=== PATIENT | female | born 1960 | race Caucasian/White ===

== ENCOUNTER 2017-01-06 10:29 | Emergency (ER) | payer OTHER ==
--- NOTE | ~2017-01-06 | CT16 ---
[facility] A Service [facility] RADIOLOGY TEXT RESULTS PATIENT: MADDI LUTZ LOCATION: SED : 62 UNIT #: [id number] AGE: [address]: Canelo Baron MD SEX: F ORDER DR: [id number] [address] [address] [id number] E MR#: [id number] Acc #: [id number] NAME: MADDI LUTZ. : 1960 SEX: F STUDY DATE/TIME: 01/06/2017 11:28 UNIT: SED ROOM: STUDY DESCRIPTION: CT Angio Chest for PE Attending Physician: Canelo Baron M.D. Ordering Physician: Canelo Baron M.D. Primary Care Physician: No Primary Care Physician MEDICAL IMAGING REPORT This report is preliminary unless electronic signature is present. EXAM CTA chest with contrast, PE protocol, 01/06/2017 HISTORY 56-year-old female with shortness of air and cough for 3 days. Chest pain. COMPARISON None TECHNIQUE Helical scan performed through the chest following the timed bolus administration of IV contrast, per PE protocol. Coronal 3-D MIP reconstructions. Sagittal reformatted images. This CT exam was performed with one or more of the following radiation dose reduction techniques: automatic exposure control, adjustment of mA and/or kV according to patient size, and iterative reconstruction. FINDINGS There is adequate opacification of the pulmonary arteries with no filling defects noted. Thoracic aorta normal in course and caliber without dissection. Heart size is normal. No pericardial effusion. Moderate hiatal hernia. No pleural effusions. No pneumothorax. No parenchymal infiltrates. Incidental scanning through the upper abdomen is unremarkable. No acute bony abnormality. IMPRESSION 1. Negative for pulmonary emboli. 2. Negative for thoracic aortic aneurysm/dissection. 3. No acute pulmonary process. [facility] A Service [facility] RADIOLOGY TEXT RESULTS PATIENT: MADDI LUTZ LOCATION: SED : 62 UNIT #: [id number] AGE: [address]: Canelo Baron MD SEX: F ORDER DR: 4. Moderate hiatal hernia. Dictated by... Luis Gomes M.D. THIS IS AN ELECTRONICALLY VERIFIED REPORT Luis Gomes M.D. at 01/06/2017 2:47 PM VIDAL/ria TD: 01/06/2017 14:43 JOB #: [id number] MEDICAL IMAGING REPORT Page 1 of 1
--- NOTE | ~2017-01-06 | EKG ---
PATIENT: MADDI LUTZ UNIT #: [id number] Ventricular Rate: 72 BPM Atrial Rate: 72 BPM P-R Interval: 102 ms QRS Duration: 124 ms Q-T Interval: 416 ms QTC Calculation(Bezet): 455 ms P Ponce: 5 degrees Calculated R Ponce: -41 degrees Calculated T Ponce: -14 degrees Diagnosis Line: Sinus rhythm with sinus arrhythmia with short AR Diagnosis Line: Left axis deviation Diagnosis Line: Right bundle branch block with repolarization Diagnosis Line: abnormality Diagnosis Line: Abnormal ECG Diagnosis Line: No previous ECGs available Diagnosis Line: Confirmed by FARRAH MAHMOOD MD ([id number]) on 01/09/2017 Diagnosis Line: 9:36:47 AM INTERPRETING MD: ELA WHITE
--- NOTE | ~2017-01-06 | CR72 ---
[facility]. [facility] A Service of [facility] RADIOLOGY TEXT RESULTS PATIENT: MADDI LUTZ LOCATION: SED : 62 UNIT #: [id number] AGE: [address]: Canelo Baron MD SEX: F ORDER DR: [id number] [address] [address] [id number] E MR#: [id number] Acc #: [id number] NAME: MADDI LUTZ : 1960 SEX: F STUDY DATE/TIME: 01/06/2017 10:33 UNIT: SED ROOM: STUDY DESCRIPTION: CR Chest Single View Portable Attending Physician: Canelo Baron M.D. Ordering Physician: Canelo Baron M.D. Primary Care Physician: Primary Care Physician No MEDICAL IMAGING REPORT This report is preliminary unless electronic signature is present. EXAM Portable chest 01/06/2017 HISTORY Chest pain for 4 days. Comparison none. FINDINGS Frontal chest demonstrates clear lungs. No pleural effusion or pneumothorax. Heart size and mediastinum within normal limits. Pulmonary vasculature unremarkable. IMPRESSION No acute cardiopulmonary findings. Dictated by... Luis Gomes M.D. THIS IS AN ELECTRONICALLY VERIFIED REPORT Luis Gomes M.D. at 01/06/2017 2:16 PM Patti TD: 01/06/2017 14:10 JOB #: [id number] MEDICAL IMAGING REPORT Page 1 of 1
[~2017-01-06 10:29] MED LIST: EFFEXOR PO; INDERAL LA; TOPAMAX50 MG
[2017-01-06 10:54] LABS: BASOPHIL# 0.1 X10e3 (0-0.3); BASOPHIL% 1.2 % (0-2.5); EOSINOPHIL# 0.2 X10e3 (0-0.7); EOSINOPHIL% 3.9 % (0.0-7.0); HEMATOCRIT 30.2 % (35.0-45.0); HEMOGLOBIN 9.7 gm/dL (12.0-16.0); LYMPHOCYTE# 1.3 X10e3 (1.0-3.5); LYMPHOCYTE% 24.3 % (17.0-45.0); MEAN CELL VOLUME 78.7 FL (83-96); MEAN CORPUSCULAR HEMOGLOBIN 25.3 PG (28-34); MEAN CORPUSCULAR HGB CONC 32.1 g/dL (30-36); MEAN PLATELET VOLUME 8.8 FL (6.5-11.5); MONOCYTE# 0.6 X10e3 (0-1.0); MONOCYTE% 10.7 % (3.0-12.0); NEUTROPHIL# 3.3 X10e3 (1.5-7.1); NEUTROPHIL% 59.9 % (40-75); PLATELET COUNT 246 X10e3 (140-420); RED BLOOD COUNT 3.83 X10e (3.90-5.30); WHITE BLOOD COUNT 5.4 X10e3 (4.0-10.5)
[2017-01-06 11:05] LABS: POC - CKMB <1.0 ng/mL (0.0-7.9); POC - TROPONIN <0.05 ng/mL (<=0.05)
[2017-01-06 11:08] LABS: DIFF IND NO
[2017-01-06 11:11] LABS: ALBUMIN SERUM 3.8 g/dL (3.5-5.0); ALKALINE PHOSPHATASE 96 U/L (32-92); ALT (SGPT) 21 U/L (10-40); AST (SGOT) 24 U/L (10-42); BILIRUBIN,TOTAL 0.3 mg/dL (0.2-2.0); BLOOD UREA NITROGEN 20 mg/dL (9-23); BUN/CREATININE RATIO 22.22; CALCIUM SERUM 9.5 mg/dL (8.4-10.2); CARBON DIOXIDE 25 mmol/L (22-31); CHLORIDE 108 mmol/L (100-111); CREATININE SERUM 0.9 mg/dL (0.6-1.4); GLUCOSE FASTING 104 mg/dL (70-110); LIPASE 31 U/L (22-51); POTASSIUM 3.2 mmol/L (3.5-5.1); PROTEIN TOTAL SERUM 7.4 g/dL (6.0-8.3); SODIUM 140 mmol/L (135-145)
[2017-01-06 11:15] LABS: BILIRUBIN, DIRECT <0.1 mg/dL (0.0-0.2); BILIRUBIN,INDIRECT 0.2 mg/dL (0.0-0.9)
== END 2017-01-06 12:48 | disposition home or self-care (01) ==
LOC: SED 10:29
PROVIDERS: Emergency Medicine
DX: R07.89 Other chest pain (principal); M54.32 Sciatica, left side; Z79.899 Other long term (current) drug therapy
CPT/HCPCS: 36415; 71010; 71275; 80048; 80076; 82553; 83690; 84484; 85025; 85379; 93005; 96374; 96375; 99284; J1885; Q9967

== ENCOUNTER 2017-04-29 14:38 | Emergency (ER) | payer OTHER ==
[2017-04-29] MEDS ORDERED: ANTIANXIETY MED (15:12)
[2017-04-29] MEDS ORDERED: BLOOD PRESSURE MED (15:12)
== END 2017-04-29 16:52 | disposition home or self-care (01) ==
LOC: SED 14:38
DX: M77.9 Enthesopathy, unspecified (principal); I10 Essential (primary) hypertension; Z98.890 Other specified postprocedural states
CPT/HCPCS: 29540; 82947; 99283